=== PATIENT | male | born 1965 | race Caucasian/White ===

== ENCOUNTER 2016-11-14 01:53 | Inpatient (IN) | payer OTHER ==
[~2016-11-14] VITALS: Ht 177.8 cm; Wt 64.5 kg
--- NOTE | 2016-11-14 07:09 | ER ---
ADMIT: 11/14/2016 RM/LOC: 625 [facility] MR#: [id number] [address] [address] ALEX GROSSMAN [address] [place] [address] Emergency Room Report SEX: M AGE: 51 : 1965 DATE: 11/14/2016 CHIEF COMPLAINT: Abdominal pain. HISTORY OF PRESENT ILLNESS: The patient is a 51-year-old male, presents approximately 6 hours after developing epigastric periumbilical pain radiating to right lower quadrant over the course of several hours associated with nausea and vomiting x3. Denies any fevers, chills, or diarrhea. Last bowel movement yesterday. PAST MEDICAL HISTORY: ILLNESSES: Hypertension, hyperlipidemia, and DJD. OPERATIONS: None. ALLERGIES: NONE. MEDICATIONS: Please see nurse's MAR. SOCIAL HISTORY: Smokes 2 packs a day or more. No drugs or alcohol. FAMILY HISTORY: Negative for kidney stones. REVIEW OF SYSTEMS: A 12-point review of systems negative for all other systems, illnesses, or operations except as outlined above. PHYSICAL EXAMINATION: VITAL SIGNS: Temp 96.8, pulse 84, respirations 16, BP 119/80, SaO2 of 98% on room air, and weight 64.5 kilos. GENERAL: Severe distress, anxious, nondiaphoretic without jaundice or icterus, appears much older than stated age. HEENT: Normocephalic. No evidence of epistaxis, rhinorrhea, or otorrhea. NECK: Supple without lymphadenopathy or thyromegaly. CHEST: Clear. Breath sounds equal. HEART: Regular rate and rhythm without murmur, gallop, or edema. ABDOMEN: Diffusely tender midepigastrium to right lower quadrant without mass or megaly. Bowel sounds hypoactive. EXTREMITIES: No evidence of Homans sign, synovitis, or dermatitis. NEUROLOGIC: EOMI. PERRLA. No evidence of drift, dysarthria, or ataxia. Gait is antalgic. MEDICAL DECISION MAKING: The patient is in severe distress. CT confirms high- grade small-bowel obstruction with what appears to be lymph nodes around the terminal ilium, appendix otherwise normal, no perforation, no transition point. WBC 21.4 with marked left shift, 19 absolute neutrophil count. Glucose 144, CRP 1.57, lipase 140, lactic 1.1, troponin less than 0.015. UA ADMIT: 11/14/2016 RM/LOC: 625 [facility] MR#: [id number] [address] [address] ALEX GROSSMAN [address] [place] [address] Emergency Room Report SEX: M AGE: 51 : 1965 pending. The patient was given a liter of fluid, Zofran, Toradol, Dilaudid, and Protonix with marked improvement of pain. Discussed findings with Dr. Mon, who agreed to admit and gave orders to nursing staff. DIAGNOSIS: Abdominal pain, suspicious for underlying malignancy. Recommend MRI versus contrast scanning. RECOMMENDATION: Admit inpatient Med/Surg for Dr. Garnica. ADMISSION/DISCHARGE CONDITION: Stable. Pio Way MD/ modl JOB #: [id number] CC: Kee Garnica MD, Attending Physician Kee Garnica MD, Family Physician Kee Garnica MD
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
[2016-11-16] MEDS ORDERED: NAPROXEN500 MG PO (11:53)
[2016-11-16] MEDS ORDERED: ZESTORETIC 10/11 TAB PO (11:53)
[2016-11-16] MEDS ORDERED: CLARITIN DPS10 MG PO (11:54)
[2016-11-16] MEDS ORDERED: CENTRUM SILVER1 EAC1 PO (11:54)
[2016-11-16] MEDS ORDERED: SAM-E200 MG PO (11:54)
[2016-11-16] MEDS ORDERED: ASPIR-LOW81 MG PO (11:54)
[2016-11-16] MEDS ORDERED: ZOFRAN8 MG PO (11:55)
[2016-11-16] MEDS ORDERED: NICOTINE 21 MG TD (11:55)
--- NOTE | 2016-12-26 09:06 | DS ---
ADMIT: 11/14/2016 RM/LOC: 625 [facility] MR#: [id number] [id number] [address] ALEX GROSSMAN [address] [place] [address] General Discharge Summary SEX: M AGE: 51 : 1965 ADMISSION DATE: 11/14/2016 DISCHARGE DATE: 11/15/2016 PRIMARY DIAGNOSES: 1. Partial small bowel obstruction. 2. Abdominal pain. 3. Nausea and vomiting. 4. Leukocytosis (resolved at time of discharge). 5. Tobacco abuse. CONSULTATIONS DURING THIS HOSPITALIZATION: General Surgery with Dr. Solo Artis. HISTORY OF PRESENT ILLNESS: The patient is a 51-year-old, white male, who developed some generalized abdominal pain about 1 day prior to this hospitalization. The pain began on a Tuesday afternoon around 3:30 p.m. and progressively worsened into the evening and night. He does not recall eating anything out of the ordinary. He has not done any recent travel outside of the state or outside of the country. Denied having any fevers. The pain progressively worsened and moved from the epigastric region to the lower abdominal region throughout the night. Developed some nausea and vomiting along with worsening abdominal pain, and therefore came into the emergency room on Tuesday morning around 1:30 a.[address] for evaluation. A CT scan of the abdomen was done during this evaluation through the emergency room and showed some high-grade small bowel obstruction. He also had an elevated white blood cell count of 21.4 at time of admission. The patient was admitted for a small- bowel obstruction and a surgical consult. LABORATORY AND X-RAY DATA: Admission labs through the emergency room included a lactic acid of 1.1. White blood cell count elevated at 21.4, hemoglobin 15.7, and platelet count 378. Sodium 136, potassium 4.6, BUN 18, creatinine 1.1, and glucose 144. Total cholesterol 155, triglyceride 62, HDL cholesterol 50, and LDL cholesterol 93. Total bilirubin 0.3, alkaline phosphatase 75, AST 19, ALT 24, and lipase 140. Troponin I was less than 0.015. C-reactive protein of 1.57. CT scan of the abdomen reportedly confirmed a high-grade small bowel obstruction and what appeared to be some lymph nodes around the terminal ileum. Further evaluation included an abdominal x-ray on 11/15/2016, which showed a negative bowel gas pattern. Blood cultures from time of admission showed no growth after 5 days incubation. Prior to discharge on 11/15, the patient had a sodium of 144, potassium 4.1, BUN 14, creatinine 0.9, glucose 107, total bilirubin 0.3, alkaline phosphatase 52, AST 13, ALT 16, procalcitonin level was less than 0.05. Lactic acid level was 0.7. White blood cell count was normal at 9.4, hemoglobin 12.4, and platelet count 386. HOSPITAL COURSE: The patient was admitted to the hospital on 11/14/2016, with severe abdominal pain, nausea, and vomiting. A CT scan showed high-grade small bowel obstruction. Surgical consult was ordered. After evaluation by Dr. Solo Artis, it was felt the patient did not need any surgical intervention. IV fluids were given along with IV morphine for pain. Because ADMIT: 11/14/2016 RM/LOC: 625 [facility] MR#: [id number] [address] [address] ALEX GROSSMAN [address] [address] General Discharge Summary SEX: M AGE: 51 : 1965 of his elevated white blood cell count, patient had been started on Rocephin 1 g IV daily. The patient was also placed on a nicotine replacement protocol. Morphine did not seem to help with the patient's pain and therefore he was set up for a Dilaudid [facility] per protocol on 11/14/2016, in the morning. The patient was kept n.p.o. until evaluated by General Surgery. Dr. Artis of General Surgery did allow patient to advance to a clear liquid diet later in the day on 11/14/2016, as his abdominal pain, nausea, and vomiting resolved. The patient continued to do quite well throughout the remainder of the day and through the night. By 11/15/2016, patient had one loose stool. No fevers or chills were noted. Abdominal pain was much improved. Throughout the day on 11/15/2016, patient's pain entirely resolved and he advanced his diet to a regular diet without any further pain, nausea, or vomiting. The patient was therefore set up to be discharged to home later in the day on 11/15/2016. DISCHARGE INSTRUCTIONS: The patient was discharged to home in very stable condition in the absence of abdominal pain, nausea, and vomiting on 11/15/2016. MEDICATIONS AT TIME OF DISCHARGE: Included: 1. Aspirin 81 mg daily. 2. Claritin 10 mg daily. 3. Naproxen 500 mg daily. 4. Multivitamin once daily. 5. Zestoretic 10/12.5 mg daily. 6. Nicotine patches daily. 7. Zofran 8 mg q.6 hours as needed. Follow up with Dr. Garnica within the next 7 days after discharge. Kee Garnica MD/ ceci JOB #: [id number] CC: Kee Garnica MD, Attending Physician Kee Garnica MD, Family Physician
== END 2016-11-15 16:55 | disposition home or self-care (01) | DRG 390 ==
LOC: ER 01:53 → 6PED 03:45
PROVIDERS: ADMIT Family Medicine
DX: K56.60 Unspecified intestinal obstruction (principal); I10 Essential (primary) hypertension; E78.5 Hyperlipidemia, unspecified; M19.90 Unspecified osteoarthritis, unspecified site; D72.829 Elevated white blood cell count, unspecified; F17.210 Nicotine dependence, cigarettes, uncomplicated; J30.9 Allergic rhinitis, unspecified; Z82.49 Family history of ischemic heart disease and other diseases of the circulatory system